=== PATIENT | male | born 1970 | race Caucasian/White ===

== ENCOUNTER 2021-11-21 12:54 | Emergency (ER) | payer OTHER ==
[~2021-11-21] VITALS: Ht 170.2 cm; Wt 72.7 kg
[2021-11-21] VITALS (12 sets, daily range): BP systolic 112–129; BP diastolic 76–94
[2021-11-21] MEDS ORDERED: FLEXERIL5 M1 PO (16:42)
[2021-11-21] MEDS ORDERED: NAPROXEN500 MG PO (16:42)
== END 2021-11-21 16:55 | disposition home or self-care (01) | DRG 552 ==
LOC: ED 12:54
DX: S16.1XXA Strain of muscle, fascia and tendon at neck level, initial encounter (principal); S39.012A Strain of muscle, fascia and tendon of lower back, initial encounter; M25.552 Pain in left hip; M25.512 Pain in left shoulder; F17.200 Nicotine dependence, unspecified, uncomplicated; V44.5XXA Car driver injured in collision with heavy transport vehicle or bus in traffic accident, initial encounter